=== PATIENT | female | born 1975 | race Two or more races ===

== ENCOUNTER 2017-10-09 15:48 | Emergency (ER) | payer SELFPAY ==
[~2017-10-09] VITALS: Ht 152.4 cm; Wt 69.8 kg
[2017-10-09] MEDS ORDERED: KETOROLAC 30 MG/1 ML IM ONE (16:30)
[2017-10-09] MEDS ORDERED: METHOCARBAMOL 750 MG TABLET PO ONE (16:30)
[2017-10-09] MEDS ORDERED: KETOROLAC 30 MG/1 ML ONE (16:35)
[2017-10-09] MEDS ORDERED: METHOCARBAMOL 750 MG TABLET ONE (16:35)
[2017-10-09 19:28] VITALS: BP 132/81
== END 2017-10-09 19:30 | disposition home or self-care (01) ==
LOC: ED 19:24
DX: S16.1XXA Strain of muscle, fascia and tendon at neck level, initial encounter (principal); S39.012A Strain of muscle, fascia and tendon of lower back, initial encounter; S29.012A Strain of muscle and tendon of back wall of thorax, initial encounter; W19.XXXA Unspecified fall, initial encounter; Y93.89 Activity, other specified; Y99.8 Other external cause status; Y92.89 Other specified places as the place of occurrence of the external cause
CPT/HCPCS: 70450; 72072; 72110; 72125; 73080; 96372; 99284; J1885